=== PATIENT | female | born 1975 | race Caucasian/White ===

== ENCOUNTER 2020-10-09 19:41 | Emergency (ER) | payer OTHER, BC, SELFPAY ==
--- NOTE | ~2020-10-09 | XR_ITS ---
EXAMINATION: XR lumbar spine 2-3V DATE: 10/09/2020 21:53 INDICATION: Post rheumatic low back pain TECHNIQUE: Anteroposterior and lateral views of the lumbar spine, and cone-down lateral view of the l umbosacral junction were obtained. COMPARISON: None. FINDINGS: Alignment is normal. Vertebral body heights are normal. Lumbar disc heights are preserved with small degenerative endplate osteophytes. Lumbar facet osteoarthritis, mild in the upper to mid lumbar spine and moderate severity at L4-L5 and L5-S1. Sacrum and bilateral sacral iliac joints are unremarkable. No fractures identified. IMPRESSION: 1. Moderate lower lumbar facet osteoarthritis. No evident acute osseous abnormality. Reviewed, dictated and finalized at location A. [employer] A[employer] IMPRESSION: 1. Moderate lower lumbar facet osteoarthritis. No evident acute osseous abnorma lity.
[2020-10-09 19:48] VITALS: BP 146/109; PULSE 98; RESP 20; O2SAT 96
[2020-10-09 21:30] VITALS: BP 134/86; PULSE 84; RESP 16; O2SAT 98
[2020-10-09] MEDS: KETOROLAC (*BKC) 60 MG/2 ML VIAL IM (21:44)
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
[2020-10-09 23:27] VITALS: BP 131/87; PULSE 88; RESP 16; TEMP 36.7; O2SAT 99
== END 2020-10-09 23:28 | disposition home or self-care (01) ==
PROVIDERS: Emergency Provider Emergency Medicine
DX: S39.012A Strain of muscle, fascia and tendon of lower back, initial encounter (principal); V03.00XA Pedestrian on foot injured in collision with car, pick-up truck or van in nontraffic accident, initial encounter
CPT/HCPCS: 72100; 96372; 99283; J1885